=== PATIENT | female | born 1965 | race Asian ===

== ENCOUNTER 2017-12-12 11:45 | Emergency (ER) | END 2017-12-12 13:29 | disposition home or self-care (01) ==

== ENCOUNTER 2018-03-18 21:43 | Emergency (ER) | END 2018-03-19 00:28 | disposition home or self-care (01) ==

== ENCOUNTER 2018-05-08 19:49 | Emergency (ER) | END 2018-05-09 00:28 | disposition home or self-care (01) ==

== ENCOUNTER 2018-10-06 20:39 | Emergency (ER) | payer OTHER ==
[~2018-10-06] VITALS: Ht 160 cm; Wt 74.3 kg
[~2018-10-06 20:39] MED LIST: AZIT250T PO; BENZ200C68 PO; CETI10CA PO; D-ME473S2 PO; GUAI473L22 PO; IBUP-1542 PO; LORA10CA PO
[2018-10-06 20:43] VITALS: Ht 160 cm; Wt 74.3 kg
[2018-10-06] MEDS ORDERED: ACETAMINOPHEN 500 MG TAB PO STA (22:13)
--- NOTE | 2018-10-06 23:09 | ERD ---
ER Documentation Chief Complaint Chief Complaint HEADACHE ON/IFF [id number]; NO OTHER S/S HPI 52-year-old female presents with complaint of headache for the past 2 weeks. States the headache came on suddenly. States that she is has no history of migraines and has never had a headache of this intensity. States that is currently 6 out of 10 but it has been more intense in the past. Denies any focal weakness numbness vision problems, fevers, photophobia, rash, neck stiffness. ROS All systems reviewed and are negative except as per history of present illness. Medications Home Meds Active Scripts Ibuprofen* (Motrin*) 600 Mg Tab, 600 MG PO Q6H PRN for PAIN AND OR ELEVATED TEMP, #30 TAB Prov:HEATH TELLO 10/07/18 Lkfbpxofzm-Yqrdnmyuprslg-Tkilsltv* (Fioricet*) 50-300-40 Mg Capsule, 1 CAP PO Q4H PRN for HEADACHE, #20 CAP Prov:HEATH TELLO 10/07/18 Cetirizine Hcl* (Zyrtec*) 10 Mg Capsule, 10 MG PO DAILY, #30 TAB.CHEW Prov:PRITI [employer] 05/09/18 Guaifenesin-Codeine Phosphate* (Guaifenesin* AC Cough Syrup) 473 Ml Liquid, 10 ML PO Q4H PRN for COUGH, #60 ML Prov:PRITI [employer] 05/09/18 Azithromycin* (Zithromax*) 250 Mg Tablet, 250 MG PO .ZPACK DIRECTED, #6 TAB TAKE 500 MG (2 TABS) THE FIRST DAY THEN 250 MG (1 TAB) DAYS 2-5 Prov:PRITI [employer] 05/09/18 Loratadine* (Claritin*) 10 Mg Capsule, 10 MG PO DAILY, #20 CAP Prov:HEATH ASTORGA PA-C 03/18/18 Benzonatate* (Benzonatate*) 200 Mg Capsule, 200 MG PO TID PRN for COUGH, #15 CAP Prov:HEATH ASTORGA PA-C 03/18/18 Azithromycin* (Zithromax*) 250 Mg Tablet, 250 MG PO .ZPACK DIRECTED, #6 TAB TAKE 500 MG (2 TABS) THE FIRST DAY THEN 250 MG (1 TAB) DAYS 2-5 Prov:HEATH ASTORGA PA-C 03/18/18 Dextromethorphan Hb-Promethazine Hcl* (Promethazine DM* Syrup) 473 Ml Syrup, 5 ML PO Q6 PRN for COUGH, #120 ML Prov:NILESH LOMAS PA-C 12/12/17 Allergies Allergies: Coded Allergies: No Known Allergy (Unverified , 12/12/17) PMhx/Soc History of Surgery: Yes (thyroidectomy) Hx Neurological Disorder: No Hx Respiratory Disorders: No Hx Cardiac Disorders: Yes (HTN) Hx Psychiatric Problems: No Hx Miscellaneous Medical Probl: No Hx Alcohol Use: No Hx Substance Use: No Hx Tobacco Use: No Smoking Status: Never smoker FmHx Family History: No diabetes, No coronary disease, No other Physical Exam Vitals Vital Signs Date Temp Pulse Resp B/P (MAP) Pulse Ox O2 O2 Flow FiO2 Time Delivery Rate 10/07/18 98.3 62 16 145/88 99 Room Air 01:00 (107) 10/06/18 98.5 77 19 172/100 99 20:43 (124) Physical Exam Const: No acute distress Head: Atraumatic Eyes: Normal Conjunctiva ENT: Normal External Ears, Nose and Mouth. Neck: Full range of motion. No meningismus. Resp: Clear to auscultation bilaterally Cardio: Regular rate and rhythm, no murmurs Abd: Soft, non tender, non distended. Normal bowel sounds Skin: No petechiae or rashes Back: No midline or flank tenderness Ext: No cyanosis, or edema Neur: Awake and alert Psych: Normal Mood and Affect neuro: M/S: Alert and oriented Face: EOMI, face and pharynx with normal sensation and function Motor: Normal strength throughout Sensation: Normal sensation throughout Speech: Normal Cerebel: Normal coordination Normal gait Normal finger to nose DTR: 2+ and symmetric upper/lower extremities Results 24 hrs Current Medications Medications Dose Sig/Isaac Start Time Status Last (Trade) Ordered Route PRN Stop Time Admin Dose Reason Admin 1,000 mg ONCE STAT 10/06/18 DC 10/06/18 Acetaminophen PO 22:13 22:20 (Tylenol 10/06/18 22:15 Tab) Ketorolac 60 mg ONCE STAT 10/07/18 DC Tromethamine IM 00:42 (Toradol) 10/07/18 00:43 Procedures/MDM MDM: Because patient complained of headache that had sudden onset and was more intense than any headache she has had before, decision was made to do head CT. Results within normal limits. Because patients neuro exam is WNL with no focal neurological findings and patients ERIC is only currently 6/10, is in NAD, and has a normal C, I have low suspicion for intracranial bleed and therefore do not think LP is warranted at this time. Patient most likely suffering from migraine. Patient given Rx for Fioricet. I have low suspicion for intracranial hemorrhage, elevated intracranial pressure, intracranial mass, aneurysm, meningitis, malignant hypertension, giant cell arteritis, carotid dissection, intracranial abscess, cerebral venous thrombosis, CO2 poisoning, or other emergent causes of headache based on patients history and exam. Patient d ischarged with strict ER precautions. Patient advised to follow up with PMD. All questions answered at discharge. Departure Diagnosis: Primary Impression: Headache Headache type: unspecified Headache chronicity pattern: acute headache Intractability: not intractable Qualified Codes: R51 - Headache Condition: Stable HEATH TELLO October 06, 2018 23:09
[2018-10-07] MEDS ORDERED: BUTA1CAP38 PO ×2 (00:44→00:48)
[2018-10-07] MEDS ORDERED: IBUP-1542 PO (00:49)
[2018-10-07] MEDS: KETOROLAC 60 MG INJ IM STA ×2 (00:57→00:58)
[2018-10-07 01:00] VITALS: BP 145/88; PULSE 62; RESP 16
== END 2018-10-07 01:01 | disposition home or self-care (01) ==
LOC: FTE 20:39
DX: R51 Headache (principal); I10 Essential (primary) hypertension
CPT/HCPCS: 70450; J1885; Z7502; Z7610